=== PATIENT | female | born 1955 | race American Indian/Alaskan Native ===

== ENCOUNTER 2017-09-13 09:13 | Outpatient (CLI) | payer OTHER ==
--- NOTE | 2017-09-13 09:59 | Mammography Report ---
BILATERAL MAMMOGRAM: FINDINGS: The breast tissue is heterogeneously dense, which could obscure detection of small masses (approximately 50%-75% glandular). No mass, distortion, suspicious calcification, or skin change is seen. CAD was utilized. IMPRESSION: Negative mammogram. There is no mammographic evidence of malignancy. RECOMMENDATION: Follow-up per ACS guidelines. BI-RADS CATEGORY: 1 = Negative ACR BI-RADS MAMMOGRAPHIC CODES: 0 = Needs additional imaging evaluation; 1 = Negative; 2 = Benign; 3 = Probably benign; 4 = Suspicious; 5 = Malignant; 6 = Known biopsy-proven malignancy COMMENT: 1. Dense breast tissue, i.e., adenosis, fibrocystic changes, etc., may obscure an underlying neoplasm. 2. Approximately 10% of cancers are not detected with mammography. 3. A negative mammography report should not delay biopsy if a clinically suspicious mass is present. COMMENT: Patient follow-up letters are generated in [employer].
== END 2017-09-13 09:14 | disposition home or self-care (01) ==
LOC: MAMMO 09:13
PROVIDERS: ATTEND Nurse Practitioner
DX: Z12.31 Encounter for screening mammogram for malignant neoplasm of breast (principal)
CPT/HCPCS: 77067

== ENCOUNTER 2018-09-17 07:29 | Outpatient (CLI) | payer MEDICARE, OTHER ==
--- NOTE | 2018-09-17 11:42 | Mammography Report ---
BILATERAL DIGITAL SCREENING MAMMOGRAM WITH CAD INDICATION: Screening. COMPARISONS: 09/13/2017 FINDINGS: Craniocaudal and mediolateral oblique views of both breasts were obtained using 2-D digital acquisition. In addition to standard review, the examination was analyzed for possible abnormalities using a computer-assisted detection device (iCAD). The breast tissue is heterogeneously dense, which may obscure small masses. A right asymmetry on the MLO view requires additional imaging. No architectural distortion or suspici ous calcifications. The left breast is negative. IMPRESSION: Right asymmetry requiring additional imaging. Recommend recall for a right MLO spot compression view and right breast ultrasound if needed. BI-RADS CATEGORY 0: INCOMPLETE - NEED ADDITIONAL IMAGING EVALUATION AND/OR PRIOR MAMMOGRAMS FOR COMP ARISON Information is entered into a reminder system for a target due date for the next mammogram. The resul ts and recommendations were sent to the patient by mail. Signer Name: Kilo Caro MD Signed: 09/17/2018 11:38 AM Workstation Name: [id number]
== END 2018-09-17 07:30 | disposition home or self-care (01) ==
LOC: MAMMO 07:29
PROVIDERS: ATTEND Nurse Practitioner
DX: Z12.31 Encounter for screening mammogram for malignant neoplasm of breast (principal)
CPT/HCPCS: 77067

== ENCOUNTER 2018-10-09 10:04 | Outpatient (CLI) | payer MEDICARE, OTHER ==
--- NOTE | 2018-10-09 13:37 | Mammography Report ---
DIGITAL DIAGNOSTIC MAMMOGRAM WITH CAD, 10/09/2018 INDICATION: Call back from abnormal screening mammogram TECHNIQUE: Digital right mammographic imaging was performed. Spot compression views were obtained. This examination was interpreted with the benefit of Computer-aided Detection analysis. COMPARISON: Recent screening mammogram, 09/17/2018 and prior mammogram, 09/13/2017 FINDINGS: Breast Density: The breasts are heterogeneously dense, which may obscure small masses. Previously seen focal asymmetry resolves with spot compression. No abnormal finding noted. IMPRESSION: Benign findings. No evidence of malignancy. BI-RADS Category 2: Benign. Recommend routine screening mammography in one year A "normal" or negative report should not discourage follow up or biopsy of a clinically significant f inding. A written summary of these findings will be mailed to the patient. The patient will be entered into a mammography reporting system which will generate a reminder letter for the patient's next appointmen t at the appropriate interval. FURTHER INFORMATION: According to the [employer], yearly mammograms are recommend ed starting at age 40 and continuing as long as a woman is in good health. Breast MRI is recommended for women with an approximately 20-25% or greater lifetime risk of breast cancer, including women wi th a strong family history of breast or ovarian cancer and women who have been treated for Hodgkin's disease. Signer Name: Angelica Wyatt MD Signed: 10/09/2018 1:32 PM Workstation Name: [id number]
== END 2018-10-09 10:05 | disposition home or self-care (01) ==
LOC: MAMMO 10:04
PROVIDERS: ATTEND Internal Medicine
DX: R92.8 Other abnormal and inconclusive findings on diagnostic imaging of breast (principal)

== ENCOUNTER 2020-09-29 07:25 | Outpatient (CLI) | payer MEDICARE, OTHER ==
--- NOTE | 2020-09-29 10:30 | Mammography Report ---
DIGITAL SCREENING MAMMOGRAM WITH CAD, 09/29/2020 INDICATION: Routine screening mammography. TECHNIQUE: Digital bilateral 2D mammography was obtained in the craniocaudal and mediolateral obliq ue projections. This examination was interpreted with the benefit of Computer-Aided Detection analysi s. COMPARISON: 09/28/2019, 09/17/2018. FINDINGS: Breast Density: The breasts are heterogeneously dense, which may obscure small masses. There is no evidence of dominant mass, suspicious calcifications or architectural distortion in eithe r breast. IMPRESSION: Follow up recommendation: Routine yearly BI-RADS Category 1: Negative. A "normal" or negative report should not discourage follow up or biopsy of a clinically significant f inding. A written summary of these findings will be mailed to the patient. The patient will be entered into a mammography reporting system which will generate a reminder letter for the patient's next appointmen t at the appropriate interval. The [employer] recommends yearly mammograms starting at age 40 and continuing as l yumiko as a woman is in good health. Breast MRI is recommended for women with an approximate 20-25% or greater lifetime risk of breast cancer, including women with a strong family history of breast or ova hermelinda cancer or who have been treated for Hodgkin's disease. Signer Name: Irvin Mao MD Signed: 09/29/2020 10:26 AM Workstation Name: [id number]
== END 2020-09-29 07:26 | disposition home or self-care (01) ==
LOC: MAMMO 07:25
PROVIDERS: ATTEND Internal Medicine
DX: Z12.31 Encounter for screening mammogram for malignant neoplasm of breast (principal)
CPT/HCPCS: 77067

== ENCOUNTER 2021-10-02 07:14 | Outpatient (CLI) | payer MEDICARE, OTHER ==
--- NOTE | 2021-10-03 17:36 | Mammography Report ---
DIGITAL SCREENING MAMMOGRAM WITH CAD, 10/02/2021 CLINICAL INFORMATION / INDICATION: Routine screening mammography. TECHNIQUE: Digital bilateral 2D mammography was obtained in the craniocaudal and mediolateral oblique projections. This examination was interpreted with the benefit of Computer-Aided Detection analysis. COMPARISON: 09/13/2017 through 09/29/2020. FINDINGS: Breast Density: The breasts are heterogeneously dense, which may obscure small masses. No dominant mass, suspicious calcifications, or architectural distortion in either breast. IMPRESSION: No mammographic evidence of malignancy. Follow up recommendation: Routine yearly screening mammogram. BI-RADS Category 1: NEGATIVE A "normal" or negative report should not discourage follow up or biopsy of a clinically significant f inding. A written summary of these findings will be mailed to the patient. The patient will be entered into a mammography reporting system which will generate a reminder letter for the patient's next appointmen t at the appropriate interval. The [employer] recommends yearly mammograms starting at age 40 and continuing as l yumiko as a woman is in good health. Breast MRI is recommended for women with an approximate 20-25% or greater lifetime risk of breast cancer, including women with a strong family history of breast or ova hermelinda cancer or who have been treated for Hodgkin's disease. Signer Name: Anthony Edmond MD Signed: 10/03/2021 5:32 PM Workstation Name: [email or web address]
== END 2021-10-02 07:15 | disposition home or self-care (01) ==
LOC: MAMMO 07:14
PROVIDERS: ATTEND Internal Medicine
DX: Z12.31 Encounter for screening mammogram for malignant neoplasm of breast (principal)
CPT/HCPCS: 77067